=== PATIENT | male | born 1945 | race Caucasian/White ===

== ENCOUNTER 2019-01-10 10:03 | Observation (INO) | payer MEDICARE ==
[~2019-01-10] VITALS: Ht 177.8 cm; Wt 118.4 kg
[2019-01-10 10:38] LABS: BASOPHILS % (AUTO) 0.4 % (0.0-5.0); EOSINOPHILS % (AUTO) 1.1 % (0.0-8.0); HEMATOCRIT 41.2 % (42-54); LYMPHOCYTES % (AUTO) 10.7 % (21.0-51.0); MEAN CORPUSCULAR HEMOGLOBIN 31.8 pg (27.0-33.0); MEAN CORPUSCULAR HGB CONC 34.9 g/dL (32.0-36.0); MEAN CORPUSCULAR VOLUME 90.9 fL (79-99); MONOCYTES % (AUTO) 8.2 % (3.0-13.0); NEUTROPHILS % (AUTO) 79.6 % (40.0-77.0); NUCLEATED RED BLOOD CELLS 0.1 % (0.0-0.19); PLATELET COUNT (AUTO) 229 K/uL (130-400); RED BLOOD CELL COUNT(AUTO) 4.53 MIL/uL (4.50-6.20)
[2019-01-10 10:51] LABS: INR 1.09 (0.85-1.15); PARTIAL THROMBOPLASTIN TIME 31.3 SEC (26.3-35.5); PROTHROMBIN TIME 11.4 SEC (9.6-11.6)
[2019-01-10 10:52] LABS: CREATININE 1.4 mg/dL (0.5-1.5); POTASSIUM 3.3 mmol/L (3.5-5.1)
[2019-01-10 10:57] LABS: ALBUMIN 4.1 g/dL (3.5-5.0); BILIRUBIN,DIRECT 0.4 mg/dL (0.0-0.3); TOTAL PROTEIN, SERUM 7.3 g/dL (6.0-8.3)
[2019-01-10 12:58] LABS: APPEARANCE,URINE Cloudy (CLEAR); BILIRUBIN,URINE Small (NEGATIVE); COLOR,URINE Dark Yellow (YELLOW); GLUCOSE, URINE (UA) Negative (NEGATIVE); KETONES,URINE 15 mg/dL (NEGATIVE); LEUKOCYTE ESTERASE ,URINE Trace (NEGATIVE); NITRATE,URINE Negative (NEGATIVE); OCCULT BLOOD,URINE Negative (NEGATIVE); PH,URINE 5.5 (5.0-8.0); PROTEIN,URINE POS 1+ mg/dL (NEGATIVE)
[2019-01-10 13:13] LABS: BACTERIA,URINE Few /HPF (None Seen); MUCUS,URINE Many LPF (None Seen); RBC,URINE None Seen /HPF (0-1); WBC,URINE 0-1 /HPF (0-1)
[2019-01-10] MEDS ORDERED: 1/2 NORMAL SALINE 1,000 ML IV ONE (15:04)
[2019-01-10] MEDS ORDERED: ACETAMINOPHEN-CODEINE 300/30MG TAB ONE (15:51)
[2019-01-10 16:41] VITALS: BP 150/91
[2019-01-10] MEDS: 1/2 NORMAL SALINE 1,000 ML IV SCH (17:00)
[2019-01-10] MEDS ORDERED: AMIO400T4 PO (17:44)
[2019-01-10] MEDS ORDERED: CARV25TA PO (17:44)
[2019-01-10] MEDS ORDERED: FURO40TA5 PO (17:44)
[2019-01-10] MEDS ORDERED: SACU1TAB7 PO (17:44)
[2019-01-10] MEDS ORDERED: ATOR40TA69 PO (17:44)
[2019-01-10] MEDS ORDERED: APIX5TAB PO (17:44)
[2019-01-10 19:37] VITALS: BP 122/75
[2019-01-10] MEDS ORDERED: MAGNESIUM 2GM PREMIX 50ML 50 ML IV PRN (20:30)
[2019-01-10] MEDS ORDERED: POTASSIUM CHLORIDE 20MEQ/100ML 100 ML IV PRN (20:30)
[2019-01-10] MEDS ORDERED: POTASSIUM CHLORIDE 10% ELIXIR 20 MEQ/15 ML UDCUP PO PRN (20:30)
[2019-01-10] MEDS ORDERED: LIDOCAINE HCL-MPF 1% 2ML VIAL IVP PRN (20:30)
[2019-01-10] MEDS: APIXABAN 5 MG TABLET PO SCH (21:54)
[2019-01-10] MEDS: ATORVASTATIN CALCIUM 40 MG TABLET PO SCH (21:55)
[2019-01-10] MEDS: CARVEDILOL 25 MG TABLET PO SCH (21:55)
[2019-01-10] MEDS: POTASSIUM CHLORIDE 20 MEQ ERTAB PO PRN (21:56)
[2019-01-10] MEDS: LACTULOSE 20 GM/30 ML UDCUP PO SCH (21:56)
[2019-01-10] MEDS: ACETAMINOPHEN-CODEINE 300/30MG TAB PO PRN (21:57)
[2019-01-11 00:29] VITALS: BP 117/72
[2019-01-11] MEDS: LACTULOSE 20 GM/30 ML UDCUP PO SCH ×4 (03:08→22:04)
[2019-01-11] MEDS: POTASSIUM CHLORIDE 20 MEQ ERTAB PO PRN (03:09)
[2019-01-11 03:51] VITALS: BP 137/87
[2019-01-11 06:48] LABS: HEMATOCRIT 39.8 % (42-54); MEAN CORPUSCULAR HEMOGLOBIN 31.2 pg (27.0-33.0); MEAN CORPUSCULAR HGB CONC 34.3 g/dL (32.0-36.0); MEAN CORPUSCULAR VOLUME 90.8 fL (79-99); PLATELET COUNT (AUTO) 217 K/uL (130-400); RED BLOOD CELL COUNT(AUTO) 4.39 MIL/uL (4.50-6.20); WHITE BLOOD COUNT (AUTO) 8.8 K/uL (4.8-10.8)
[2019-01-11 06:54] LABS: CREATININE 1.3 mg/dL (0.5-1.5); MAGNESIUM 1.9 mg/dL (1.80-2.40); POTASSIUM 3.6 mmol/L (3.5-5.1)
[2019-01-11 07:00] VITALS: BP 158/101
[2019-01-11] MEDS: AMIODARONE HCL 200 MG TABLET PO SCH (08:57)
[2019-01-11] MEDS: APIXABAN 5 MG TABLET PO SCH ×2 (08:57→22:04)
[2019-01-11] MEDS: FUROSEMIDE 40 MG TABLET PO SCH (08:59)
[2019-01-11] MEDS: VALSARTAN PO SCH (09:00)
[2019-01-11] MEDS: CARVEDILOL 25 MG TABLET PO SCH ×2 (09:00→22:06)
[2019-01-11] MEDS: SACUBITRIL PO SCH (09:00)
[2019-01-11] MEDS: METOCLOPRAMIDE 10 MG/2 ML VIAL IVP SCH ×3 (09:54→22:06)
[2019-01-11 12:00] VITALS: BP 144/94
[2019-01-11] MEDS: 1/2 NORMAL SALINE 1,000 ML IV SCH (13:00)
[2019-01-11] MEDS: ACETAMINOPHEN-CODEINE 300/30MG TAB PO PRN (14:46)
[2019-01-11 16:00] VITALS: BP 140/73
--- NOTE | 2019-01-11 19:59 | NUR ---
cm note met with patient and states resides at home with spouse, independent with adls and self care. no dme dcp plan is back home. Addendum: 01/11/19 at 1999 by TRUMAN AVILES CM Amended: Links added.
[2019-01-11 20:00] VITALS: BP 127/75
[2019-01-11] MEDS: ATORVASTATIN CALCIUM 40 MG TABLET PO SCH (22:05)
[2019-01-12 00:04] VITALS: BP 100/63
[2019-01-12 04:00] VITALS: BP 140/78
[2019-01-12] MEDS: LACTULOSE 20 GM/30 ML UDCUP PO SCH ×2 (05:02→09:00)
[2019-01-12] MEDS: METOCLOPRAMIDE 10 MG/2 ML VIAL IVP SCH (05:02)
--- NOTE | 2019-01-12 06:37 | NUR ---
NOTE DR. BERRY ROUNDING. SPOKE WITH PATIENT. PATIENT STATED HE IS READY TO GO WHEN ASKED IF HE FELT READY FOR DISCHARGE. ORDERS RECEIVED FROM DR. BERRY.
[2019-01-12 08:00] VITALS: BP 110/72
[2019-01-12] MEDS: SACUBITRIL PO SCH (09:00)
[2019-01-12] MEDS: VALSARTAN PO SCH (09:00)
[2019-01-12] MEDS: 1/2 NORMAL SALINE 1,000 ML IV SCH (09:00)
[2019-01-12] MEDS: APIXABAN 5 MG TABLET PO SCH (09:20)
[2019-01-12 09:21] VITALS: BP 110/72
[2019-01-12] MEDS: FUROSEMIDE 40 MG TABLET PO SCH (09:21)
[2019-01-12] MEDS: CARVEDILOL 25 MG TABLET PO SCH (09:21)
[2019-01-12] MEDS: AMIODARONE HCL 200 MG TABLET PO SCH (09:22)
== END 2019-01-12 10:13 | disposition home or self-care (01) ==
LOC: EDH 10:03 → EDHIP 14:48 → 3CH 16:20
PROVIDERS: ADMIT Internal Medicine; ATTEND Internal Medicine
DX: K59.03 Drug induced constipation (principal); E78.00 Pure hypercholesterolemia, unspecified; I25.10 Atherosclerotic heart disease of native coronary artery without angina pectoris; I48.91 Unspecified atrial fibrillation; I50.9 Heart failure, unspecified; T40.605A Adverse effect of unspecified narcotics, initial encounter; W01.0XXA Fall on same level from slipping, tripping and stumbling without subsequent striking against object, initial encounter; Y93.89 Activity, other specified; Y92.89 Other specified places as the place of occurrence of the external cause; Y99.8 Other external cause status
CPT/HCPCS: 36415 ×2; 71045; 74176; 80048; 80053; 81001; 82248; 82270; 82550; 83735; 84484; 85025; 85027; 85610; 85730; 86850; 86900; 86901; 93005; 96365; 96366; 96375; 96376 ×2; 99284; G0378 ×41; J2765 ×4; J3475

== ENCOUNTER → 2020-01-31 | Outpatient (CLI) | payer MEDICARE ==
[~2020-01-31] MED LIST: AMIO400T4 PO; APIX5TAB PO; ATOR40TA69 PO; CARV25TA PO; FURO40TA5 PO; SACU1TAB7 PO
== END | disposition home or self-care (01) ==
LOC: SHCH 10:52
PROVIDERS: ATTEND Internal Medicine Cardiovascular Disease
DX: I51.7 Cardiomegaly (principal); I48.91 Unspecified atrial fibrillation; I49.9 Cardiac arrhythmia, unspecified; Z95.0 Presence of cardiac pacemaker
CPT/HCPCS: 93306; 93356

== ENCOUNTER 2020-10-05 11:00 | Inpatient (IN) | payer MEDICARE ==
[~2020-10-05] VITALS: Ht 177.8 cm; Wt 121.7 kg
[~2020-10-05 11:00] MED LIST changes: -AMIO400T4 PO; -APIX5TAB PO
[2020-10-05 11:08] LABS: BASOPHILS % (AUTO) 0.6 % (0.0-5.0); EOSINOPHILS % (AUTO) 3.5 % (0.0-8.0); HEMATOCRIT 41.2 % (42-54); LYMPHOCYTES % (AUTO) 19.2 % (21.0-51.0); MEAN CORPUSCULAR HEMOGLOBIN 31.1 pg (27.0-33.0); MONOCYTES % (AUTO) 7.5 % (3.0-13.0); NEUTROPHILS % (AUTO) 68.9 % (40.0-77.0); PLATELET COUNT (AUTO) 203 K/uL (130-400); RED BLOOD CELL COUNT(AUTO) 4.63 MIL/uL (4.50-6.20); RED CELL DISTRIBUTION WIDTH 13.5 % (11.0-15.5); WHITE BLOOD COUNT (AUTO) 7.7 K/uL (4.8-10.8)
[2020-10-05 11:11] LABS: APPEARANCE,URINE Clear (CLEAR); BILIRUBIN,URINE Negative (NEGATIVE); COLOR,URINE Yellow (YELLOW); GLUCOSE, URINE (UA) Negative (NEGATIVE); KETONES,URINE Negative (NEGATIVE); LEUKOCYTE ESTERASE ,URINE Trace (NEGATIVE); NITRATE,URINE Negative (NEGATIVE); OCCULT BLOOD,URINE Nonhemolyzed Trace (NEGATIVE); PH,URINE 5.5 (5.0-8.0); PROTEIN,URINE Negative (NEGATIVE)
[2020-10-05 11:29] LABS: CREATININE 0.9 mg/dL (0.5-1.5); INR 1.15 (0.85-1.15); PROTHROMBIN TIME 12.4 SEC (9.6-11.6)
[2020-10-05 11:38] LABS: BACTERIA,URINE None Seen /HPF (None Seen); SQUAMOUS EPITHELIAL CELL,UR 0-2 /HPF (0-2); WBC,URINE 0-1 /HPF (0-1)
[2020-10-06 10:01] VITALS: BP 142/80
[2020-10-09] VITALS (24 sets, daily range): BP systolic 111–196; BP diastolic 50–122
[2020-10-09] MEDS ORDERED: LACTATED RINGERS 1000ML 1,000 ML IV ONE (10:09)
[2020-10-09] MEDS ORDERED: CARVEDILOL 25 MG TABLET PO SCH (10:30)
[2020-10-09] MEDS: CEFAZOLIN SODIUM 1 GM VIAL IVP SCH ×2 (10:37→14:00)
[2020-10-09] MEDS ORDERED: CELECOXIB 200 MG CAP ONE (12:36)
[2020-10-09] MEDS ORDERED: ACETAMINOPHEN 500 MG TABLET ONE (12:36)
[2020-10-09] MEDS ORDERED: ROPIVACAINE 0.5% 5MG/ML 30ML IJ ONE (12:56)
[2020-10-09] MEDS ORDERED: NEOSTIGMINE 5MG/5ML SYR IV ONE ×2 (13:00→15:56)
[2020-10-09] MEDS ORDERED: LIDOCAINE PF 100MG/5ML (2%) SYRINGE 5ML ONE (13:00)
[2020-10-09] MEDS ORDERED: PROPOFOL 10 MG/ML 20ML VIAL IV ONE (13:00)
[2020-10-09] MEDS ORDERED: FENTANYL CITRATE PF 50 MCG/1 ML 2ML VIAL ONE (13:00)
[2020-10-09] MEDS ORDERED: SUCCINYLCHOLINE CHLORIDE 20 MG/ML 10 ML VIAL ONE (13:00)
[2020-10-09] MEDS ORDERED: DEXAMETHASONE SOD PHOSPHATE 10MG/ML 1ML VIAL ONE (13:00)
[2020-10-09] MEDS ORDERED: MIDAZOLAM HCL 1 MG/ML 2ML VIAL ONE (13:00)
[2020-10-09] MEDS ORDERED: ONDANSETRON 4MG INJ ONE (13:00)
[2020-10-09] MEDS ORDERED: ROCURONIUM 10MG/1ML SYR 10 MG/ML ML ONE (13:00)
[2020-10-09] MEDS ORDERED: GLYCOPYRROLATE 1 MG/5 ML SYRINGE ONE ×2 (13:00→15:56)
[2020-10-09] MEDS ORDERED: KETAMINE 50MG/ML SYRINGE 50 MG/ML DISP.SYRIN IV ONE (13:05)
[2020-10-09] MEDS ORDERED: CEFAZOLIN SODIUM 1 GM VIAL ONE (13:32)
[2020-10-09] MEDS ORDERED: PHENYLEPHRINE HCL 10 MG/ML 1ML VIAL IV ONE (13:46)
[2020-10-09] MEDS: 0.9%NACL 1000ML 1,000 ML IV SCH ×2 (15:45→16:16)
[2020-10-09] MEDS ORDERED: TEMAZEPAM 15 MG CAPSULE PO PRN (15:45)
[2020-10-09] MEDS ORDERED: POTASSIUM CHLORIDE 10% ELIXIR 20 MEQ/15 ML UDCUP PO PRN (15:45)
[2020-10-09] MEDS ORDERED: DiphenhydrAMINE HCL 50 MG/ML VIAL IVP PRN (15:45)
[2020-10-09] MEDS ORDERED: CALCIUM CARB 500MG PO PRN (15:45)
[2020-10-09] MEDS ORDERED: OXYCODONE HCL 5 MG TAB PO PRN (15:45)
[2020-10-09] MEDS ORDERED: FERROUS FUMARATE 324 MG TABLET PO PRN (15:45)
[2020-10-09] MEDS ORDERED: LIDOCAINE HCL-MPF 1% 2ML VIAL IV PRN (15:45)
[2020-10-09] MEDS ORDERED: KCL 20 MEQ ERTAB PO PRN (15:45)
[2020-10-09] MEDS ORDERED: TRAMADOL HCL 50 MG TABLET PO PRN (15:45)
[2020-10-09] MEDS ORDERED: POTASSIUM CHLORIDE 20MEQ/100ML 100 ML IV PRN (15:45)
[2020-10-09] MEDS: ACETAMINOPHEN 500 MG TABLET PO SCH (15:45)
[2020-10-09] MEDS ORDERED: LABETALOL 20MG VIAL IV ONE (16:20)
[2020-10-09] MEDS ORDERED: MEPERIDINE-PF 25 MG/ML SYG ONE ×2 (16:25→16:36)
[2020-10-09] MEDS: KETOROLAC 15MG/ML VIAL (15MG/ML) IV PRN (17:37)
[2020-10-09] MEDS ORDERED: APIX5TAB PO (17:51)
[2020-10-09] MEDS: ONDANSETRON 4MG INJ IVP PRN (17:55)
[2020-10-09] MEDS ORDERED: VALSARTAN PO SCH (21:00)
[2020-10-09] MEDS ORDERED: [UNRECOGNIZED DRUG - OTHER] PO SCH (21:00)
[2020-10-09] MEDS: Sacubitril/Valsartan (Entresto 49 mg-51 mg Tablet) PO SCH (21:00)
[2020-10-09] MEDS ORDERED: SACUBITRIL PO SCH (21:00)
[2020-10-09] MEDS: CELECOXIB 200 MG CAP PO SCH (21:22)
[2020-10-09] MEDS: PREGABALIN 25 MG CAP PO SCH (21:22)
[2020-10-09] MEDS: APIXABAN 5 MG TABLET PO SCH (21:22)
[2020-10-09] MEDS: FAMOTIDINE 20MG TAB PO SCH (21:22)
[2020-10-09] MEDS: CEFAZOLIN SODIUM 100 GM IV SCH (21:56)
[2020-10-10] MEDS: ACETAMINOPHEN 500 MG TABLET PO SCH ×4 (00:09→22:24)
[2020-10-10] MEDS: 0.9%NACL 1000ML 1,000 ML IV SCH ×2 (01:45→11:45)
[2020-10-10 04:00] VITALS: BP 133/78
[2020-10-10] MEDS: CEFAZOLIN SODIUM 100 GM IV SCH (04:50)
[2020-10-10] MEDS: OXYCODONE HCL 5 MG TAB PO PRN ×3 (04:55→22:25)
[2020-10-10 05:19] LABS: HEMATOCRIT 30.4 % (42-54); MEAN CORPUSCULAR HEMOGLOBIN 30.3 pg (27.0-33.0); MEAN CORPUSCULAR HGB CONC 33.6 g/dL (32.0-36.0); MEAN CORPUSCULAR VOLUME 90.2 fL (79-99); RED BLOOD CELL COUNT(AUTO) 3.37 MIL/uL (4.50-6.20); RED CELL DISTRIBUTION WIDTH 13.7 % (11.0-15.5); WHITE BLOOD COUNT (AUTO) 9.1 K/uL (4.8-10.8)
[2020-10-10 05:31] LABS: POTASSIUM 4.2 mmol/L (3.5-5.1)
[2020-10-10 08:12] VITALS: BP 133/93
[2020-10-10] MEDS: PREGABALIN 25 MG CAP PO SCH ×2 (08:12→22:23)
[2020-10-10] MEDS: POLYETHYLENE GLYCOL 3350 17 GM POWD.PACK PO SCH (08:12)
[2020-10-10] MEDS: ATORVASTATIN 40 MG TABLET PO SCH (08:12)
[2020-10-10] MEDS: APIXABAN 5 MG TABLET PO SCH ×2 (08:13→22:23)
[2020-10-10] MEDS: TAMSULOSIN HCL 0.4 MG CAP.ER.24H PO SCH (08:13)
[2020-10-10] MEDS: FAMOTIDINE 20MG TAB PO SCH ×2 (08:13→22:23)
[2020-10-10] MEDS: CARVEDILOL 25 MG TABLET PO SCH (08:13)
[2020-10-10] MEDS: FUROSEMIDE 40 MG TABLET PO SCH (08:13)
[2020-10-10] MEDS: CELECOXIB 200 MG CAP PO SCH ×2 (08:13→22:23)
[2020-10-10] MEDS: KETOROLAC 15MG/ML VIAL (15MG/ML) IV PRN (08:14)
[2020-10-10] MEDS: Sacubitril/Valsartan (Entresto 49 mg-51 mg Tablet) PO SCH ×2 (09:00→21:00)
[2020-10-10] MEDS: ONDANSETRON 4MG INJ IVP PRN (11:16)
[2020-10-10 11:45] VITALS: BP 114/70
[2020-10-10 16:00] VITALS: BP 122/66
[2020-10-10 20:06] VITALS: BP 94/54
[2020-10-10 23:33] VITALS: BP 113/62
[2020-10-11 03:58] VITALS: BP 114/60
[2020-10-11] MEDS: ACETAMINOPHEN 500 MG TABLET PO SCH ×3 (07:45→20:12)
[2020-10-11 08:00] VITALS: BP 102/59
[2020-10-11] MEDS: Sacubitril/Valsartan (Entresto 49 mg-51 mg Tablet) PO SCH ×3 (09:00→20:41)
[2020-10-11] MEDS: TAMSULOSIN HCL 0.4 MG CAP.ER.24H PO SCH (10:50)
[2020-10-11] MEDS: PREGABALIN 25 MG CAP PO SCH ×2 (10:50→20:12)
[2020-10-11] MEDS: CARVEDILOL 25 MG TABLET PO SCH (10:50)
[2020-10-11] MEDS: ATORVASTATIN 40 MG TABLET PO SCH (10:50)
[2020-10-11] MEDS: CELECOXIB 200 MG CAP PO SCH ×2 (10:51→20:12)
[2020-10-11] MEDS: APIXABAN 5 MG TABLET PO SCH ×2 (10:51→20:12)
[2020-10-11] MEDS: FAMOTIDINE 20MG TAB PO SCH ×2 (10:51→20:12)
[2020-10-11] MEDS: FUROSEMIDE 40 MG TABLET PO SCH (10:51)
[2020-10-11] MEDS: OXYCODONE HCL 5 MG TAB PO PRN (10:52)
[2020-10-11] MEDS: POLYETHYLENE GLYCOL 3350 17 GM POWD.PACK PO SCH (10:53)
[2020-10-11 12:04] VITALS: BP 118/63
[2020-10-11 16:00] VITALS: BP 98/51
[2020-10-11 20:00] VITALS: BP 93/66
[2020-10-12] VITALS: BP 91/48
[2020-10-12 04:00] VITALS: BP 110/56
[2020-10-12] MEDS: ACETAMINOPHEN 500 MG TABLET PO SCH ×3 (05:52→20:59)
[2020-10-12 08:08] VITALS: BP 133/63
[2020-10-12] MEDS: Sacubitril/Valsartan (Entresto 49 mg-51 mg Tablet) PO SCH ×2 (09:00→21:00)
[2020-10-12] MEDS: PREGABALIN 25 MG CAP PO SCH ×2 (09:31→20:59)
[2020-10-12] MEDS: POLYETHYLENE GLYCOL 3350 17 GM POWD.PACK PO SCH (09:31)
[2020-10-12] MEDS: FAMOTIDINE 20MG TAB PO SCH ×2 (09:31→20:59)
[2020-10-12] MEDS: FUROSEMIDE 40 MG TABLET PO SCH (09:32)
[2020-10-12] MEDS: ATORVASTATIN 40 MG TABLET PO SCH (09:32)
[2020-10-12] MEDS: TAMSULOSIN HCL 0.4 MG CAP.ER.24H PO SCH (09:32)
[2020-10-12] MEDS: CELECOXIB 200 MG CAP PO SCH ×2 (09:32→20:59)
[2020-10-12] MEDS: CARVEDILOL 25 MG TABLET PO SCH (09:33)
[2020-10-12] MEDS: APIXABAN 5 MG TABLET PO SCH ×2 (09:33→20:59)
[2020-10-12] MEDS: OXYCODONE HCL 5 MG TAB PO PRN (09:37)
[2020-10-12 12:00] VITALS: BP 113/66
[2020-10-12] MEDS ORDERED: BISACODYL 10 MG SUPP.RECT RC PRN (15:45)
[2020-10-12 16:00] VITALS: BP 112/54
[2020-10-12] MEDS ORDERED: MAGNESIUM CITRATE 296 ML SOLUTION PO SCH (16:15)
[2020-10-12] MEDS ORDERED: MAGNESIUM CITRATE 296 ML SOLUTION ONE (16:16)
[2020-10-12 20:00] VITALS: BP 114/70
[2020-10-13] VITALS: BP 111/45
[2020-10-13 04:20] VITALS: BP 109/52
[2020-10-13] MEDS: ACETAMINOPHEN 500 MG TABLET PO SCH ×2 (06:02→15:52)
[2020-10-13 07:51] VITALS: BP 96/67
[2020-10-13] MEDS: OXYCODONE HCL 5 MG TAB PO PRN (08:09)
[2020-10-13] MEDS: Sacubitril/Valsartan (Entresto 49 mg-51 mg Tablet) PO SCH (09:00)
[2020-10-13] MEDS: PREGABALIN 25 MG CAP PO SCH (09:00)
[2020-10-13] MEDS: CARVEDILOL 25 MG TABLET PO SCH (09:00)
[2020-10-13] MEDS: POLYETHYLENE GLYCOL 3350 17 GM POWD.PACK PO SCH (11:14)
[2020-10-13] MEDS: ATORVASTATIN 40 MG TABLET PO SCH (11:14)
[2020-10-13] MEDS: CELECOXIB 200 MG CAP PO SCH (11:14)
[2020-10-13] MEDS: TAMSULOSIN HCL 0.4 MG CAP.ER.24H PO SCH (11:15)
[2020-10-13] MEDS: FAMOTIDINE 20MG TAB PO SCH (11:15)
[2020-10-13] MEDS: APIXABAN 5 MG TABLET PO SCH (11:15)
[2020-10-13] MEDS: FUROSEMIDE 40 MG TABLET PO SCH (11:15)
[2020-10-13 11:30] VITALS: BP 126/57
[2020-10-13 16:05] VITALS: BP 111/70
[2020-10-13] MEDS ORDERED: HYDR-4060 PO (16:24)
== END 2020-10-13 17:40 | disposition home health service (06) | DRG 470 ==
LOC: EDSTATUS 11:00 → DAHIP 10-09 09:52 → INTOOBSV 10-09 09:52 → OBSVTOIN 10-09 09:52 → 3AH 10-09 17:35
PROVIDERS: ADMIT Orthopaedic Surgery; ATTEND Orthopaedic Surgery
PROC: 0SRD0J9 Replacement of Left Knee Joint with Synthetic Substitute, Cemented, Open Approach (ICD-10-PCS; principal; 2020-10-09 10:50)
DX: M17.12 Unilateral primary osteoarthritis, left knee (principal); E78.5 Hyperlipidemia, unspecified; D64.9 Anemia, unspecified; G47.33 Obstructive sleep apnea (adult) (pediatric); I10 Essential (primary) hypertension; I25.10 Atherosclerotic heart disease of native coronary artery without angina pectoris; I48.0 Paroxysmal atrial fibrillation; Z79.01 Long term (current) use of anticoagulants; Z96.649 Presence of unspecified artificial hip joint; Z20.822 Contact with and (suspected) exposure to COVID-19
CPT/HCPCS: 36415; 80048; 81001; 82948; 85025; 85027; 85610; 87641; 88305; 88311; 97039; A4344; G0378; J0330; J0690; J1100; J1885; J2001; J2175; J2250; J2370; J2405; J2704; J2710; J2795; J3010; J3490; J7120; U0003

== ENCOUNTER 2020-10-30 11:21 | Observation (INO) | payer MEDICARE ==
[~2020-10-30] VITALS: Ht 177.8 cm; Wt 114.9 kg
[~2020-10-30 11:21] MED LIST changes: +APIX5TAB PO; +HYDR-4060 PO
[2020-10-30 11:43] LABS: BASOPHILS % (AUTO) 0.1 % (0.0-5.0); HEMATOCRIT 34.4 % (42-54); MEAN CORPUSCULAR HEMOGLOBIN 29.3 pg (27.0-33.0); MEAN CORPUSCULAR HGB CONC 32.3 g/dL (32.0-36.0); MEAN CORPUSCULAR VOLUME 90.8 fL (79-99); MONOCYTES % (AUTO) 8.6 % (3.0-13.0); NEUTROPHILS % (AUTO) 87.9 % (40.0-77.0); PLATELET COUNT (AUTO) 448 K/uL (130-400); RED BLOOD CELL COUNT(AUTO) 3.79 MIL/uL (4.50-6.20); RED CELL DISTRIBUTION WIDTH 14.8 % (11.0-15.5); WHITE BLOOD COUNT (AUTO) 18.7 K/uL (4.8-10.8)
[2020-10-30 11:57] LABS: CREATININE 1.2 mg/dL (0.5-1.5); POTASSIUM 3.6 mmol/L (3.5-5.1)
[2020-10-30 12:02] LABS: ALBUMIN 3.7 g/dL (3.5-5.0); BILIRUBIN,TOTAL 2.5 mg/dL (0.2-1.0); TOTAL PROTEIN, SERUM 7.3 g/dL (6.0-8.3)
[2020-10-30 12:07] LABS: B-TYPE NATRIURETIC PEPTIDE 1320 pg/mL (0-100)
[2020-10-30 12:17] LABS: APPEARANCE,URINE CLOUDY (CLEAR); BILIRUBIN,URINE SMALL (NEGATIVE); COLOR,URINE YELLOW (YELLOW); GLUCOSE, URINE (UA) NEGATIVE (NEGATIVE); KETONES,URINE 5 mg/dL (NEGATIVE); LEUKOCYTE ESTERASE ,URINE NEGATIVE (NEGATIVE); NITRATE,URINE NEGATIVE (NEGATIVE); OCCULT BLOOD,URINE TRACE-LYSED (NEGATIVE); PH,URINE 5.5 (5.0-8.0); PROTEIN,URINE 100 mg/dL (NEGATIVE)
[2020-10-30 12:21] LABS: INR 1.27 (0.85-1.15); PROTHROMBIN TIME 13.5 SEC (9.6-11.6)
[2020-10-30 12:22] LABS: BACTERIA,URINE Rare /HPF (None Seen); MUCUS,URINE Many LPF (None Seen); RBC,URINE 0-1 /HPF (0-1); SQUAMOUS EPITHELIAL CELL,UR Rare /HPF (0-2); WBC,URINE 0-1 /HPF (0-1)
[2020-10-30 12:23] LABS: PARTIAL THROMBOPLASTIN TIME 29.8 SEC (26.3-35.5)
[2020-10-30] MEDS ORDERED: IOHEXOL-350 75 ML VIAL IV ONE (12:32)
[2020-10-30] MEDS ORDERED: ONDANSETRON HCL 4 MG/2 ML VIAL ONE (12:49)
[2020-10-30] MEDS ORDERED: ZOSYN 3.375GM+NS 50ML 50 ML IV ONE (15:24)
[2020-10-30] MEDS ORDERED: LEVOFLOXACIN 500 MG/D5W 100 ML 100 ML ONE (21:02)
[2020-10-30] MEDS ORDERED: CEFTRIAXONE SODIUM 1 GM ONE (21:02)
[2020-10-31 05:18] LABS: BASOPHILS % (AUTO) 0.2 % (0.0-5.0); EOSINOPHILS % (AUTO) 0.1 % (0.0-8.0); HEMATOCRIT 30.3 % (42-54); LYMPHOCYTES % (AUTO) 3.8 % (21.0-51.0); MEAN CORPUSCULAR HEMOGLOBIN 29.2 pg (27.0-33.0); MEAN CORPUSCULAR VOLUME 91.3 fL (79-99); MONOCYTES % (AUTO) 8.9 % (3.0-13.0); NEUTROPHILS % (AUTO) 86.4 % (40.0-77.0); PLATELET COUNT (AUTO) 330 K/uL (130-400); RED BLOOD CELL COUNT(AUTO) 3.32 MIL/uL (4.50-6.20); RED CELL DISTRIBUTION WIDTH 14.9 % (11.0-15.5); WHITE BLOOD COUNT (AUTO) 15.9 K/uL (4.8-10.8)
[2020-10-31 05:38] LABS: POTASSIUM 3.5 mmol/L (3.5-5.1)
[2020-10-31 05:40] LABS: ALBUMIN 2.9 g/dL (3.5-5.0); BILIRUBIN,TOTAL 1.5 mg/dL (0.2-1.0); TOTAL PROTEIN, SERUM 6.3 g/dL (6.0-8.3)
[2020-10-31] MEDS ORDERED: LACTULOSE 20 GM/30 ML UDCUP ONE ×2 (08:18→15:10)
[2020-10-31] MEDS ORDERED: ONDANSETRON HCL 4 MG/2 ML VIAL ONE (08:26)
[2020-10-31] MEDS: LACTULOSE 20 GM/30 ML UDCUP PO SCH ×4 (09:00→21:00)
[2020-10-31] MEDS ORDERED: 1/2 NORMAL SALINE 1,000 ML IV ONE (19:01)
[2020-10-31] MEDS ORDERED: SODIUM CHLORIDE 0.9% 1000ML 1,000 ML IV ONE (20:12)
[2020-10-31] MEDS: TAMSULOSIN HCL 0.4 MG CAP.ER.24H PO SCH (21:00)
[2020-10-31] MEDS ORDERED: CEFTRIAXONE SODIUM 1 GM ONE (21:37)
[2020-10-31] MEDS ORDERED: LEVOFLOXACIN 500 MG/D5W 100 ML 100 ML ONE (21:37)
[2020-10-31 22:30] VITALS: BP 143/74
[2020-11-01 04:00] VITALS: BP 137/62
[2020-11-01 07:54] VITALS: BP 113/62
[2020-11-01] MEDS: LACTULOSE 20 GM/30 ML UDCUP PO SCH ×4 (09:50→20:02)
[2020-11-01] MEDS: APIXABAN 5 MG TABLET PO SCH ×2 (09:50→20:03)
[2020-11-01] MEDS: CARVEDILOL 12.5 MG TABLET PO SCH ×2 (09:50→20:09)
[2020-11-01] MEDS: FUROSEMIDE 40 MG TABLET PO SCH (09:51)
[2020-11-01 12:16] VITALS: BP 90/55
[2020-11-01 16:25] VITALS: BP 95/59
[2020-11-01 19:29] VITALS: BP 97/61
[2020-11-01] MEDS: TAMSULOSIN HCL 0.4 MG CAP.ER.24H PO SCH (20:03)
[2020-11-01] MEDS: ATORVASTATIN CALCIUM 40 MG TABLET PO SCH (20:04)
[2020-11-01 23:26] VITALS: BP 106/73
[2020-11-02 03:22] VITALS: BP 115/58
[2020-11-02 05:07] LABS: HEMATOCRIT 31.9 % (42-54); MEAN CORPUSCULAR HEMOGLOBIN 28.9 pg (27.0-33.0); MEAN CORPUSCULAR VOLUME 90.4 fL (79-99); RED BLOOD CELL COUNT(AUTO) 3.53 MIL/uL (4.50-6.20); WHITE BLOOD COUNT (AUTO) 10.8 K/uL (4.8-10.8)
[2020-11-02 05:17] LABS: CREATININE 1.1 mg/dL (0.5-1.5); POTASSIUM 3.4 mmol/L (3.5-5.1)
[2020-11-02 08:14] VITALS: BP 118/63
[2020-11-02] MEDS: LACTULOSE 20 GM/30 ML UDCUP PO SCH ×2 (09:00→12:10)
[2020-11-02] MEDS: APIXABAN 5 MG TABLET PO SCH (09:33)
[2020-11-02] MEDS: FUROSEMIDE 40 MG TABLET PO SCH (09:33)
[2020-11-02] MEDS: CARVEDILOL 12.5 MG TABLET PO SCH (09:33)
[2020-11-02] MEDS: ATORVASTATIN CALCIUM 40 MG TABLET PO SCH (09:34)
[2020-11-02] MEDS ORDERED: POTASSIUM CHLORIDE 10% ELIXIR 20 MEQ/15 ML UDCUP PO PRN (10:00)
[2020-11-02] MEDS ORDERED: POTASSIUM CHLORIDE 20MEQ/100ML 100 ML IV PRN (10:00)
[2020-11-02] MEDS: POTASSIUM CHLORIDE 20 MEQ ERTAB PO PRN ×3 (10:13→14:16)
[2020-11-02 11:36] VITALS: BP 97/37
== END 2020-11-02 15:35 | disposition home or self-care (01) ==
LOC: EDH 11:21 → EDHIP 17:13 → 3DH 10-31 21:13
PROVIDERS: ADMIT Internal Medicine; ATTEND Internal Medicine
DX: N39.0 Urinary tract infection, site not specified (principal); I25.10 Atherosclerotic heart disease of native coronary artery without angina pectoris; I48.20 Chronic atrial fibrillation, unspecified; E86.0 Dehydration; I10 Essential (primary) hypertension; E78.5 Hyperlipidemia, unspecified; M19.90 Unspecified osteoarthritis, unspecified site; K56.41 Fecal impaction; E11.9 Type 2 diabetes mellitus without complications; E78.00 Pure hypercholesterolemia, unspecified; Z95.0 Presence of cardiac pacemaker; Z95.5 Presence of coronary angioplasty implant and graft; Z79.899 Other long term (current) drug therapy
CPT/HCPCS: 36415 ×3; 71045; 74018; 74177; 76700; 80048; 80053 ×2; 81001; 83880; 84484; 85025 ×2; 85027; 85610; 85730; 93005; 97039 ×2; 97116 ×2; 97161; 99285; G0378 ×70; G8978; G8979; G8980; G8981; G8982; G8983; J0696 ×2; J1956 ×2; J2405 ×2; J2543; J7030; Q9967

== ENCOUNTER 2021-10-18 06:36 | Day surgery (SDC) | payer MEDICARE ==
[2021-10-15 11:17] LABS: BASOPHILS % (AUTO) 0.4 % (0.0-5.0); EOSINOPHILS % (AUTO) 2.9 % (0.0-8.0); HEMATOCRIT 42.8 % (42-54); LYMPHOCYTES % (AUTO) 16.2 % (21.0-51.0); MEAN CORPUSCULAR HEMOGLOBIN 30.4 pg (27.0-33.0); MEAN CORPUSCULAR HGB CONC 32.9 g/dL (32.0-36.0); MEAN CORPUSCULAR VOLUME 92.2 fL (79-99); MONOCYTES % (AUTO) 8.5 % (3.0-13.0); NEUTROPHILS % (AUTO) 71.4 % (40.0-77.0); PLATELET COUNT (AUTO) 204 K/uL (130-400); RED BLOOD CELL COUNT(AUTO) 4.64 MIL/uL (4.50-6.20); RED CELL DISTRIBUTION WIDTH 13.4 % (11.0-15.5); WHITE BLOOD COUNT (AUTO) 7.3 K/uL (4.8-10.8)
[2021-10-15 11:25] LABS: CREATININE 0.9 mg/dL (0.5-1.5); POTASSIUM 4.5 mmol/L (3.5-5.1)
[2021-10-15 11:52] LABS: INR 1.15 (0.85-1.15); PARTIAL THROMBOPLASTIN TIME 25.8 SEC (26.3-35.5); PROTHROMBIN TIME 11.9 SEC (9.6-11.6)
[2021-10-17 17:29] VITALS: BP 149/81
[~2021-10-18] VITALS: Ht 177.8 cm; Wt 122.1 kg
[2021-10-18] VITALS (8 sets, daily range): BP systolic 130–185; BP diastolic 70–96
[~2021-10-18 06:36] MED LIST changes: +AMIO200T68 PO; +CEFAZOLIN SODIUM 1 GM VIAL IVP SCH; -HYDR-4060 PO
[2021-10-18] MEDS ORDERED: 0.9%NACL 1000ML 1,000 ML IV ONE (08:12)
[2021-10-18] MEDS ORDERED: BUPIVACAINE/PF 0.25% 30ML VIAL IJ ONE (08:57)
[2021-10-18] MEDS ORDERED: MIDAZOLAM HCL 1 MG/ML 2ML VIAL ONE ×2 (08:57→10:00)
[2021-10-18] MEDS ORDERED: LIDOCAINE HCL 1% MDV 50ML VIAL ONE (08:57)
[2021-10-18] MEDS ORDERED: MEPERIDINE-PF 25 MG/ML SYG ONE ×2 (08:57→10:12)
[2021-10-18] MEDS ORDERED: SACU1TAB7 PO (10:54)
[2021-10-18] MEDS ORDERED: APIX5TAB PO (10:54)
[2021-10-18] MEDS ORDERED: CARV25TA PO (10:54)
[2021-10-18] MEDS ORDERED: ACETAMINOPHEN WITH CODEINE 1 TAB TAB PO PRN (11:00)
== END 2021-10-18 14:13 | disposition home or self-care (01) ==
LOC: DAH 06:36
PROVIDERS: ATTEND Internal Medicine Cardiovascular Disease
DX: Z45.02 Encounter for adjustment and management of automatic implantable cardiac defibrillator (principal); I25.5 Ischemic cardiomyopathy; I48.21 Permanent atrial fibrillation; I11.0 Hypertensive heart disease with heart failure; I50.22 Chronic systolic (congestive) heart failure; I25.10 Atherosclerotic heart disease of native coronary artery without angina pectoris; E78.5 Hyperlipidemia, unspecified; G47.33 Obstructive sleep apnea (adult) (pediatric); Z98.890 Other specified postprocedural states; Z95.5 Presence of coronary angioplasty implant and graft; Z79.01 Long term (current) use of anticoagulants; Z79.899 Other long term (current) drug therapy
CPT/HCPCS: 33264; 36415; 80048; 85025; 85610; 85730; 93005; A4215; A4216; A4221; A4222; A4223 ×3; A4606; A4663; C1882; J0690; J2175 ×2; J2250 ×2; J3490 ×2; J7030 ×2; 99156; 99157

== ENCOUNTER → 2022-06-19 | Outpatient (CLI) | payer MEDICARE ==
[~2022-06-19] MED LIST changes: -AMIO200T68 PO; -CEFAZOLIN SODIUM 1 GM VIAL IVP SCH
[2022-06-19 12:47] LABS: POTASSIUM 3.8 mmol/L (3.5-5.1)
== END | disposition home or self-care (01) ==
LOC: LAB 11:21
PROVIDERS: ATTEND Internal Medicine Cardiovascular Disease
DX: E78.5 Hyperlipidemia, unspecified (principal)
CPT/HCPCS: 36415; 80048; 80061

== ENCOUNTER → 2022-12-18 | Outpatient (CLI) | payer MEDICARE ==
[2022-12-18 12:43] LABS: CREATININE 0.9 mg/dL (0.5-1.5); POTASSIUM 3.7 mmol/L (3.5-5.1)
[2022-12-18 12:56] LABS: HEMOGLOBIN A1C 6.4 % (4.0-6.0)
== END | disposition home or self-care (01) ==
LOC: LAB 07:59
PROVIDERS: ATTEND Internal Medicine Cardiovascular Disease
DX: I10 Essential (primary) hypertension (principal); E78.5 Hyperlipidemia, unspecified; Z79.899 Other long term (current) drug therapy
CPT/HCPCS: 36415; 80048; 80061; 83036

== ENCOUNTER → 2023-03-27 | Outpatient (CLI) | payer MEDICARE | END | disposition home or self-care (01) | LOC: OIH 10:08 | PROVIDERS: ATTEND Internal Medicine | DX: I10 Essential (primary) hypertension (principal); I95.9 Hypotension, unspecified; M47.815 Spondylosis without myelopathy or radiculopathy, thoracolumbar region; Z95.0 Presence of cardiac pacemaker | CPT/HCPCS: 71046 ==

== ENCOUNTER → 2024-05-25 | Outpatient (CLI) | payer MEDICARE ==
[~2024-05-25] MED LIST changes: +CYCL-309 PO; +DOCU-116 PO; +HYDR-4060 PO
[2024-05-25 12:25] LABS: CREATININE 1.1 mg/dL (0.5-1.3)
== END | disposition home or self-care (01) ==
LOC: LAB 11:13
PROVIDERS: ATTEND Internal Medicine Cardiovascular Disease
DX: I10 Essential (primary) hypertension (principal)
CPT/HCPCS: 36415; 80048

== ENCOUNTER → 2024-08-05 | Outpatient (CLI) | payer MEDICARE ==
[2024-08-05 16:22] LABS: CREATININE 0.9 mg/dL (0.5-1.3); MAGNESIUM 1.8 mg/dL (1.80-2.40); POTASSIUM 3.7 mmol/L (3.5-5.1)
== END | disposition home or self-care (01) ==
LOC: LAB 11:58
PROVIDERS: ATTEND Physician Assistant
DX: I25.5 Ischemic cardiomyopathy (principal); I48.20 Chronic atrial fibrillation, unspecified
CPT/HCPCS: 36415; 80048; 83735